=== PATIENT | female | born 1985 | race Hispanic/Latino ===

== ENCOUNTER 2019-11-10 10:47 | Outpatient (CLI) | payer BC, SELFPAY ==
[2019-11-10] VITALS (7 sets, daily range): BP systolic 124–140; BP diastolic 79–95; PULSE 68–93
[2019-11-10 11:48] LABS: Basophils Absolute Auto 0.1 K/mm3 (0.0-0.1); Basophils Percent Auto 0.4 % (0.2-1.2); Eosinophils Absolute Auto 0.1 K/mm3 (0-0.3); Eosinophils Percent Auto 0.9 % (0-4.4); Hematocrit 37.6 % (37.0-47.0); Hemoglobin 12.1 g/dL (12.0-15.0); Immature Granulocyte Absolute 0.13 K/mm3 (0.00-0.031); Immature Granulocyte Percent A 0.9 % (0-0.5); Lymphocytes Absolute Auto 2.61 K/mm3 (0.9-3.2); Lymphocytes Percent Auto 19.1 % (18.3-44.2); Mean Corpuscular HGB Conc 32.2 g/dl (32-36); Mean Corpuscular Hemoglobin 27.4 pg (26-34); Mean Corpuscular Volume 85.1 fl (80-100); Mean Platelet Volume 9.6 fl (7.4-10.4); Monocytes Absolute Auto 0.7 K/mm3 (0.1-0.6); Monocytes Percent Auto 5.3 % (2.6-8.5); Neutrophils Absolute Auto 10.1 K/mm3 (1.3-6.7); Neutrophils Percent Auto 73.4 % (45.5-73.1); Platelet Count Result 531 k/mm3 (150-375); Red Blood Count 4.42 M/mm3 (4.2-5.4); Red Cell Distribution Width 13.2 % (11.5-14.5); White Blood Count 13.7 K/mm3 (4.5-10.0)
[2019-11-10 11:53] LABS: Add Urine Microscopic? YES; Appearance Urine Clear (Clear); Bacteria Urine Trace /hpf; Bilirubin Urine Negative (Negative); Blood Urine Negative (Negative); Color Urine Yellow (Yellow); Glucose Urine UA Negative (Negative); Ketones Urine Negative (Negative); Leukocyte Esterase Ur Trace LEU/UL (Negative); Mucus Urine Rare /lpf; Nitrate Urine Negative (Negative); Protein Urine Negative (Negative); RBC Urine 0-2 /hpf (0-2); Specific Grav Ur 1.011 (1.001-1.035); Squamous Epithelial Cell Urine Few /hpf (Few); Urobilinogen Urine Negative mg/dL (<2.0); WBC Urine 0-3 /hpf
[2019-11-10 11:58] LABS: Creatinine Urine 48.4 mg/dL; Total Protein Urine Random 11 mg/dL
[2019-11-10 12:02] LABS: Alanine Aminotransferase 11 U/L (4-35); Albumin Level 3.7 g/dL (3.5-5.1); Alkaline Phosphatase 189 U/L (38-126); Aspartate Amino Transferase 17 U/L (14-36); Bilirubin,Total 0.2 mg/dL (0.2-1.3); Blood Urea Nitrogen 8 mg/dL (7-17); Calcium 9.2 mg/dL (8.4-10.2); Carbon Dioxide 21 mmol/L (22-30); Chloride 105 mmol/L (98-107); Estimated Glomerular Filt Rate > 60; Glucose 94 mg/dL (65-105); Potassium 4.4 mmol/L (3.4-5.0); Sodium 134 mmol/L (137-145); Uric Acid 5.5 mg/dL (2.5-7.5)
--- NOTE | 2019-11-10 12:46 | PC.NURSE ---
Dr. Guido informed of reactive NST, BP's, and lab results. Order for discharge received. Pt to make appointment to be seen in office next week.
== END 2019-11-10 12:58 | disposition home or self-care (01) ==
LOC: ANHOBOP 10:58 → ANHOBPP 11:00
PROVIDERS: Obstetrics & Gynecology; Visit Provider Obstetrics & Gynecology
DX: O13.9 Gestational [pregnancy-induced] hypertension without significant proteinuria, unspecified trimester (principal); Z3A.00 Weeks of gestation of pregnancy not specified
CPT/HCPCS: 36415; 59025; 80053; 81001; 82570; 84156; 84550; 85025; 99199

== ENCOUNTER 2019-11-16 23:58 | Inpatient (IN) | payer BC, SELFPAY ==
[2019-11-17] VITALS (76 sets, daily range): BP systolic 123–171; BP diastolic 68–118; PULSE 60–113; RESP 16; TEMP 36.3–37.2; O2SAT 95–100; BMI 44.4
[2019-11-17 00:54] LABS: Basophils Absolute Auto 0.1 K/mm3 (0.0-0.1); Basophils Percent Auto 0.4 % (0.2-1.2); Eosinophils Absolute Auto 0.2 K/mm3 (0-0.3); Eosinophils Percent Auto 1.1 % (0-4.4); Hematocrit 34.4 % (37.0-47.0); Hemoglobin 11.1 g/dL (12.0-15.0); Immature Granulocyte Absolute 0.09 K/mm3 (0.00-0.031); Immature Granulocyte Percent A 0.7 % (0-0.5); Lymphocytes Absolute Auto 3.69 K/mm3 (0.9-3.2); Lymphocytes Percent Auto 28.1 % (18.3-44.2); Mean Corpuscular HGB Conc 32.3 g/dl (32-36); Mean Corpuscular Hemoglobin 27.4 pg (26-34); Mean Corpuscular Volume 84.9 fl (80-100); Mean Platelet Volume 9.5 fl (7.4-10.4); Monocytes Absolute Auto 0.8 K/mm3 (0.1-0.6); Monocytes Percent Auto 5.9 % (2.6-8.5); Neutrophils Absolute Auto 8.4 K/mm3 (1.3-6.7); Neutrophils Percent Auto 63.8 % (45.5-73.1); Platelet Count Result 504 k/mm3 (150-375); Red Blood Count 4.05 M/mm3 (4.2-5.4); Red Cell Distribution Width 13.2 % (11.5-14.5); White Blood Count 13.1 K/mm3 (4.5-10.0)
--- NOTE | 2019-11-17 00:55 | LDADM ---
This patient, Sarah Madsen, was admitted to Labor/Delivery/Recovery 105 on 11/16/19 at 23:58. Plans for labor, pain management and were discussed with patient. Patient/family oriented to hospital policies and general routines including ID bracelet, bed and alarms, visiting hours, pain management, procedures, bathroom and other care routines, personal items, smoking policy, room service/diet and guest tray routines, security routines, and visiting hours. Patient/Family are encouraged to report perceived risks to care and to ask questions if they do not understand what they are told or what they should do. See OBIX for further documentation.
[2019-11-17 01:04] LABS: Alanine Aminotransferase 10 U/L (4-35); Albumin Level 3.5 g/dL (3.5-5.1); Alkaline Phosphatase 179 U/L (38-126); Aspartate Amino Transferase 16 U/L (14-36); Bilirubin,Total 0.2 mg/dL (0.2-1.3); Blood Urea Nitrogen 12 mg/dL (7-17); Calcium 9.6 mg/dL (8.4-10.2); Carbon Dioxide 21 mmol/L (22-30); Chloride 107 mmol/L (98-107); Estimated CRCL calculation 182 ml/min; Estimated Glomerular Filt Rate > 60; Glucose 112 mg/dL (65-105); Potassium 3.9 mmol/L (3.4-5.0); Sodium 135 mmol/L (137-145); Uric Acid 4.9 mg/dL (2.5-7.5)
[2019-11-17] MEDS: LACTATED RINGERS 1,000 ML 125 ML IV CONT ×3 (05:34→15:51)
[2019-11-17] MEDS: OXYTOCIN 30 UNITS/NS 500 ML 30 UNITS/500 ML BAG IV CONT (05:35)
[2019-11-17 11:26] LABS: Rapid Plasma Reagin Non-Reactive (NonReactive)
--- NOTE | 2019-11-17 12:41 | WPDANESEPPF ---
Anes - Initial Pre Proc Eval Date/Time: 11/17/19 12:41 Surgeon: Deonte Guido DO Pre Op Diagnosis: Leaking fluid Patient Data Age: 34 Gender: F Height: 5 ft 6 in Weight: 125 kg Last Vital Signs Temp 36.3 C L 11/17/19 04:12 Pulse 93 11/17/19 12:37 BP 159/89 H 11/17/19 12:37 Pulse Ox 96 11/17/19 12:38 Allergies Allergy/AdvReac Type Severity Reaction Status Date / Time ketorolac [From Toradol] Allergy Rash Verified 06/15/19 12:16 Home Medications Medication Instructions Recorded Confirmed Type PNV cmb#95-ferrous fumarate-FA 1 tablet PO DAILY 10/27/19 11/10/19 History [] ferrous sulfate [Iron (ferrous 325 mg PO DAILY 10/27/19 11/10/19 History sulfate)] acetaminophen [Tylenol] 325 mg PO Q4H PRN 11/10/19 11/10/19 History Laboratory Tests 11/17/19 11/17/19 11/17/19 00:41 00:41 00:41 WBC 13.1 K/mm3 H K/mm3 (4.5-10.0) RBC 4.05 M/mm3 L M/mm3 (4.2-5.4) Hgb 11.1 g/dL L g/dL (12.0-15.0) Hct 34.4 % L % (37.0-47.0) MCV 84.9 fl fl (80-100) MCH 27.4 pg pg (26-34) MCHC 32.3 g/dl g/dl (32-36) RDW 13.2 % % (11.5-14.5) Plt Count 504 k/mm3 H k/mm3 (150-375) MPV 9.5 fl fl (7.4-10.4) Immature Gran % (Auto) 0.7 % H % (0-0.5) Neut % (Auto) 63.8 % % (45.5-73.1) Lymph % (Auto) 28.1 % % (18.3-44.2) Dickson % (Auto) 5.9 % % (2.6-8.5) Eos % (Auto) 1.1 % % (0-4.4) Baso % (Auto) 0.4 % % (0.2-1.2) Lymph # (Auto) 3.69 K/mm3 H K/mm3 (0.9-3.2) Dickson # (Auto) 0.8 K/mm3 H K/mm3 (0.1-0.6) Eos # (Auto) 0.2 K/mm3 K/mm3 (0-0.3) Baso # (Auto) 0.1 K/mm3 K/mm3 (0.0-0.1) Abs Immat Gran (auto) 0.09 K/mm3 H K/mm3 (0.00-0.031) Absolute Neuts (auto) 8.4 K/mm3 H K/mm3 (1.3-6.7) Absolute Nucleated RBC 0.0 K/mm3 K/mm3 (0.0-0.012) Nucleated RBC % 0.0 % % (0.0-0.2) Sodium Potassium Chloride Carbon Dioxide BUN Creatinine Estim Creat Clear Calc Estimated GFR Glucose Uric Acid Cancelled Calcium Total Bilirubin AST ALT Alkaline Phosphatase Total Protein Albumin RPR Non-reactive (NonReactive) Blood Type Antibody Screen 11/17/19 11/17/19 00:41 00:41 WBC RBC Hgb Hct MCV MCH MCHC RDW Plt Count MPV Immature Gran % (Auto) Neut % (Auto) Lymph % (Auto) Dickson % (Auto) Eos % (Auto) Baso % (Auto) Lymph # (Auto) Dickson # (Auto) Eos # (Auto) Baso # (Auto) Abs Immat Gran (auto) Absolute Neuts (auto) Absolute Nucleated RBC Nucleated RBC % Sodium 135 mmol/L L mmol/L (137-145) Potassium 3.9 mmol/L mmol/L (3.4-5.0) Chloride 107 mmol/L mmol/L (98-107) Carbon Dioxide 21 mmol/L L mmol/L (22-30) BUN 12 mg/dL mg/dL (7-17) Creatinine 0.50 mg/dL L mg/dL (0.7-1.0) Estim Creat Clear Calc 182 ml/min ml/min Estimated GFR > 60 (59 - ) Glucose 112 mg/dL H mg/dL (65-105) Uric Acid 4.9 mg/dL mg/dL (2.5-7.5) Calcium 9.6 mg/dL mg/dL (8.4-10.2) Total Bilirubin 0.2 mg/dL mg/dL (0.2-1.3) AST 16 U/L U/L (14-36) ALT 10 U/L U/L (4-35) Alkaline Phosphatase 179 U/L H U/L (38-126) Total Protein 7.0 g/dL g/dL (6.3-8.2) Albumin 3.5 g/dL g/dL (3.5-5.1) RPR Blood Type O Positive Antibody Screen Negative Patient hx anesthesia problems: none Family
--- NOTE | 2019-11-17 12:53 | PM.IMHP ---
H&P: HPI History of Present Illness Chief complaint: Leaking fluid Narrative: Sarah Madsen is a 34 year old female at 40 weeks gestation initially presented to L&D with spontaneous rupture of membranes and cervical dilation of 2cm. She is doing well. Labor augmented with pitocin. Just had her epidural placed and is now more comfortable. She had some headaches yesterday but no headaches currently. No blurry vision. Occasional glitters in her vision, but she has experienced this for several weeks and today is not bad. Review of Systems Constitutional: Constitutional: Reports no additional constitutional complaints Cardiovascular: Cardiovascular: Reports no additional cardiovascular complaints Respiratory: Respiratory: Reports no additional respiratory complaints Gastrointestinal: Gastrointestinal: Reports no additional gastrointestinal complaints Genitourinary: Genitourinary: Reports no additional female genitourinary complaints Musculoskeletal: Musculoskeletal: Reports no additional musculoskeletal complaints Neurologic: Reports system reviewed and no additional complaints, except as documented Psychiatric: Psychiatric: Reports no additional psychiatric complaints PMFSH Past Medical History Medical History (Updated 11/17/19 @ 13:01 by Deonte Guido DO) Hx of migraines Surgical History Surgical History (Updated 11/17/19 @ 12:59 by Deonte Guido DO) H/O LEEP Family History Family History Sibling Migraines Father Diabetes mellitus Mother Hypertension Social History Social History Smoking status: Former smoker Alcohol intake: never Substance use: never Gender identity (if verbalized by the patient): Female Spiritual care concerns: No Meds Home Medications and Allergies Home Medications Medication Instructions Recorded Confirmed Type PNV cmb#95-ferrous fumarate-FA 1 tablet PO DAILY 10/27/19 11/10/19 History [] ferrous sulfate [Iron (ferrous 325 mg PO DAILY 10/27/19 11/10/19 History sulfate)] acetaminophen [Tylenol] 325 mg PO Q4H PRN 11/10/19 11/10/19 History Allergies Allergy/AdvReac Type Severity Reaction Status Date / Time ketorolac [From Toradol] Allergy Rash Verified 06/15/19 12:16 Vital Signs Vital Signs - 24 hr 11/17/19 02:03 11/17/19 04:08 11/17/19 04:12 Temperature 36.3 C L Pulse Rate 67 69 Blood Pressure 144/68 H 136/81 Pulse Oximetry 11/17/19 05:33 11/17/19 09:53 11/17/19 10:01 Temperature Pulse Rate 74 88 71 Blood Pressure 129/94 H 158/102 H 166/96 H Pulse Oximetry 11/17/19 10:16 11/17/19 10:31 11/17/19 10:46 Temperature Pulse Rate 82 69 80 Blood Pressure 161/97 H 131/93 H 150/94 H Pulse Oximetry 11/17/19 11:02 11/17/19 11:16 11/17/19 11:31 Temperature Pulse Rate 87 91 111 H Blood Pressure 135/75 167/118 H 148/81 H Pulse Oximetry 11/17/19 11:46 11/17/19 12:01 11/17/19 12:16 Temperature Pulse Rate 113 H 76 60 Blood Pressure 130/81 123/74 145/96 H Pulse Oximetry 11/17/19 12:25 11/17/19 12:27 11/17/19 12:29 Temperature Pulse Rate 86 Blood Pressure 168/96 H Pulse Oximetry 100 100 11/17/19 12:30 11/17/19 12:31 11/17/19 12:32 Temperature Pulse Rate 80 86 Blood Pressure 158/79 H 171/94 H Pulse Oximetry 100 100 11/17/19 12:34 11/17/19 12:35 11/17/19 12:37 Temperature Pulse Rate 79 70 93 Blood Pressure 161/89 H 160/72 H 159/89 H Pulse Oximetry 100 11/17/19 12:38 11/17/19 12:41 11/17/19 12:43 Temperature Pulse Rate 86 Blood Pressure 163/86 H Pulse Oximetry 96 97 11/17/19 12:46 11/17/19 12:48 11/17/19 12:51 Temperature Pulse Rate 85 94 Blood Pressure 157/85 H 155/90 H Pulse Oximetry 96 11/17/19 12:53 Temperature Pulse Rate Blood Pressure Pulse Oximetry 95 Exam Const: General: comfortable and no
[2019-11-17 14:25] LABS: Creatinine Urine 110.1 mg/dL
[2019-11-17] MEDS: LABETALOL HCL INJ 100 MG/20 ML VIAL 20 MG IV PUSH (15:45)
[2019-11-17 16:29] LABS: Total Protein Urine Random 10 mg/dL
--- NOTE | 2019-11-17 16:58 | P.PCNOB_ITS ---
OB - Delivery Note Procedure Delivery date: 11/17/19 events: Induced HTN Intrapartal events: None Induction method: none Delivery augmentation: pitocin Delivery monitor: external FHT Route of delivery: Laceration description: Perineal - 1st Degree Delivery repair: vicryl Specimen: Yes Estimated blood loss (mL): 200 Anesthesia type: Epidural Disposition: floor [facility] Date of : 11/17/19 Time of : 16:32 Weeks of gestation at delivery: 40 gender: Female Weight (pounds): 7 Weight (ounces): 15 presentation: vertex position: Left Occiput Anterior Placenta delivery description: Spontaneous cord vessel description: 3 Vessels, Nuchal Cord and Loose score one minute: 9 score five minutes: 9
--- NOTE | 2019-11-17 17:42 | OP_ITS ---
DATE OF PROCEDURE: 11/17/2019 PROCEDURE: Normal spontaneous vaginal delivery. PREDELIVERY DIAGNOSES: 1. 40-week term gestation. 2. Spontaneous rupture of membranes. 3. Gestational hypertension. POSTDELIVERY DIAGNOSES: 1. 40-week term gestation. 2. Spontaneous rupture of membranes. 3. Gestational hypertension. ANESTHESIA: Epidural. ESTIMATED BLOOD LOSS: 200 mL. FINDINGS: 1. Single live female , born on November 17, 2017 at 1632. Weight 7 pounds 15 ounces, 9 and 9. 2. First-degree perineal laceration repaired with 2-0 Vicryl. SPECIMEN: Placenta, sent to pathology. BRIEF HISTORY: A 34-year-old, G1, P0, at 40 weeks gestation, initially presented with spontaneous rupture of membranes. Labor was augmented with Pitocin. Elevated blood pressures were noted. Preeclampsia labs were drawn. Urine protein/creatinine ratio was 0.1, and all of the labs were within normal limits. DESCRIPTION OF PROCEDURE: Once the patient was noted to be completely dilated, the labor bed was broken down. Legs were placed in stirrups for support with contractions and maternal effort, pushing efforts, the presented in PRATEEK position. The head was delivered. A loose nuchal cord was noted and reduced. Gentle downward traction applied. Anterior shoulder delivered without incident followed by the posterior shoulder and the rest of the body. The was handed off to the waiting mother. Delayed cord clamping was performed. Cord blood gases collected. Gentle traction on the umbilical cord applied and the placenta delivered spontaneously. Fundal massage was applied. Uterine fundus was noted to be firm. Exam was performed identifying lacerations. A first-degree perineal laceration was noted. This was repaired with 2-0 Vicryl. Good hemostasis noted. The patient tolerated the procedure well. All sponge and instrument counts were correct at the end of the procedure. The patient resting in the Labor and Delivery room. D I MT: Faith
[2019-11-17] MEDS: BENZOCAINE 20% AER SPR (*SP) 56 GM CAN 1 SPRAY TOPICAL (19:44)
[2019-11-17] MEDS: WITCH HAZEL 40 PADS 1 PAD TOPICAL (19:44)
[2019-11-18 05:44] LABS: Hematocrit 29.1 % (37.0-47.0); Hemoglobin 9.4 g/dL (12.0-15.0)
[2019-11-18 06:50] VITALS: PULSE 93
[2019-11-18] MEDS: IBUPROFEN 600 MG TABLET PO ×2 (08:39→16:29)
[2019-11-18] MEDS: MULTIVIT/MIN/PREN/FOL AC/IRON TABLET 1 TAB PO (08:39)
[2019-11-18] MEDS: DOCUSATE SODIUM 100 MG CAPSULE PO ×2 (08:40→16:29)
[2019-11-18 08:50] VITALS: BP 131/78; PULSE 86; RESP 18; TEMP 36.6; O2SAT 98
[2019-11-18] MEDS: POLYSACCHARIDE IRON COMPLEX 150 MG CAPSULE PO (09:21)
--- NOTE | 2019-11-18 10:20 | PC.NURSE ---
Consulted with patient, mother reports infant is sleepy and not willing to latch. Reviewed feeding cues, frequencies, duration of feedings, feeding elimination flow sheet, and signs of adequate intake. Demonstrated stimulation techniques to wake infant for feeding. Assisted with to breast. Reviewed positioning/alignment in cross cradle, holding breast in U hold and guided asymmetrical latch on. Discussed rational for each. Several attempts before was able to latch correctly. nursed eagerly, with steady draws and occasional swallowing noted. Reviewed signs of a correct latch, effective nursing and suck swallow ratio. Advised to stimulate to keep awake and nursing effectively for increased intake and assisting with maintaining deep latch. was able to maintain latch without discomfort to mother. Nipple care reviewed. Instructed mother to call out for RN assistance if she is unable to latch infant for feeding or she has discomfort with nursing. Instructed feeding should be initiated three hours from start of last feeding or if feeding cues are noted before. Mother voiced understanding of information shared.
--- NOTE | 2019-11-18 12:46 | PM.OBPNVD ---
OB - PN: Subj Subjective Date/time seen: 11/18/19 12:46 Sarah is a 34yo P1001 s/p @ 40wks, PPD#1 Today, she is doing great. She reports mild vaginal discomfort but tolerable with the pain medications. Her bleeding is decreasing. She is tolerating regular diet w/o N/V. She is voiding w/o issue and passing flatus. She is ambulating w/o symptoms of anemia. She reported a mild REYNOLDS this morning but states it resolved spontaneously. She denies any vision changes, CP, SOB. She is breast feeding. No fever, chills. She would like to be discharged home today. OB - PN: Obj Data Labs CBC & Chem 7: 11/18/19 04:40 11/17/19 00:41 Labs: Laboratory Results - last 24 hr 11/17/19 11/17/19 11/18/19 13:48 13:48 04:40 Hgb 9.4 L Hct 29.1 L U Random Total Protein 10 Urine Creatinine 110.1 110.0 OB - PN A/P Assessment and Plan (1) Gestational hypertension: Code(s): O13.9 - Gestational [-induced] hypertension without significant proteinuria, unspecified trimester Status: Acute (2) Term : Code(s): Z34.90 - Encounter for supervision of normal , unspecified, unspecified trimester Status: Acute Plan day: 1 Plan: routine care and discharge home Comments: - meeting all milestones - will discharge home this PM - Pelvic rest, take medications as prescribed. - F/u in 1 week for BP check; pt to call and schedule appt - ER return precautions regarding: pain, fever, bleeding, HTN. Time Spent With Patient Time: Total time spent is greater than 50% in coordination of care (as documented) at patient's floor/unit and/or counseling patient: Review of Systems Review of Systems: All systems reviewed & are unremarkable except as noted in HPI and below (HPI) Exam Const: General: comfortable, no acute distress, alert and awake Resp: Effort & Inspection: normal respiratory effort and abnormal respiratory pattern Cardio: Rate: regular rate GI: Auscultation: normal bowel sounds Other: mildly distended, soft, fundus firm below umbilicus Psych: Appearance: grossly normal Affect: normal affect Attitude: cooperative
[2019-11-19 09:15] VITALS: BP 148/88; PULSE 88; RESP 18; TEMP 36.8
--- NOTE | 2019-11-19 12:23 | PM.OBDSVD ---
DS: Diagnosis Admitting Diagnosis Admitting Diagnosis: Encounter for supervision of normal , unspecified, unspecified trimester Discharge Diagnosis (1) Gestational hypertension: Code(s): O13.9 - Gestational [-induced] hypertension without significant proteinuria, unspecified trimester Status: Acute (2) (normal spontaneous vaginal delivery): Code(s): O80 - Encounter for full-term uncomplicated delivery Status: Acute (3) Spontaneous rupture of membranes: Status: Acute OB - DS: Summary Hospital Course Hospital Course: Admitted for SROM and latent labor. Progressed to have . Gestational HTN, preeclampsia work up was negative. Progressed as expected post OB Procedures : None OB Procedures Intrapartum: Spontaneous Vag Delivery OB Procedures: : None Peripartum Data Delivery Method: Natural Vaginal Laceration description: Perineal - 1st Degree complications: none Status at Discharge Overall status at discharge: patient is progressing back to baseline Time Spent with Patient Time attestation: Total time spent providing and/or coordinating discharge services: Exam Const: General: comfortable, no acute distress, alert and awake Resp: Effort & Inspection: normal respiratory effort and abnormal respiratory pattern Cardio: Rate: regular rate GI: Auscultation: normal bowel sounds Other: mildly distended, soft, fundus firm below umbilicus Skin: General skin exam: normal color Psych: Appearance: grossly normal Mental Status: mental status grossly normal Affect: normal affect Attitude: cooperative DS: Data Data Completed and Pending Pending studies at discharge: Pending at discharge 11/17/19 16:37 Surgical [PTH] Routine Discharge Plan Discharge Attending physician on discharge: Deonte Guido Discharging Clinician: Deonte Guido Patient Disposition: Home, Self-Care Activity: as tolerated Diet: regular Discharge Instructions: Education: Mom and Baby Guide Given to: Mother Follow-Up: Call your delivering provider's office for an appointment to be seen in: call for appointment Mom and baby should come to the [facility] for the follow-up appointment. Appointment Date/Time: November 19, 2019 at 9:00 am What to expect at your follow-up visit: Blood Pressure Check Physical Assessment Call [phone] if you are unable to keep your appointment time. BREAST CARE: 1. Wear a snug supportive bra. 2. For engorgement discomfort: Breast Feeding: A. Apply warm moist washcloths B. Express milk as needed to relieve engorgement C. Wear loose clothing Bottle Feeding: A. May apply ice packs 3. For sore nipples: A. Identify correct latch-on B. Apply warm moist washcloths before and after nursing C. Air dry nipples after nursing D. May apply Lansinoh cream to nipples EPISIOTOMY/PERINEAL CARE: 1. Until bleeding stops, use your jesús bottle after urinating 2. Change your pad frequently throughout the day 3. You may take sitz baths several times a day (fill your bathtub with warm water and soak for 20 minutes.) Do NOT bathe in the water 4. No tub baths until seen by your physician - You may shower ACTIVITY: 1. Rest as much as possible. 2. Do not exercise or lift anything heavier than your baby (such as laundry or other children.) 3. Avoid stairs or driving as much as possible. 4. Do not put anything into the vagina. No douching, tampons, or sexual activity until seen by physician. NOTIFY PHYSICIAN IF YOU HAVE ANY QUESTIONS OR IF ANY OF THE FOLLOWING SYMPTOMS OCCUR: 1. If your perineum becomes red, swollen, or more painful than what you have experienced in the hospital. 2. If your vaginal bleeding becomes foul smelling. 3. If your vaginal bleeding becomes more heavy than a period or if your bleedin
== END 2019-11-18 19:47 | disposition home or self-care (01) | DRG 807 ==
LOC: ANHLDR 11-17 10:33 → ANHOB2 11-17 21:20
PROVIDERS: Admitting Provider Obstetrics & Gynecology; Visit Provider Obstetrics & Gynecology
DX: O13.4 Gestational [pregnancy-induced] hypertension without significant proteinuria, complicating childbirth (principal); Z37.0 Single live birth; Z3A.40 40 weeks gestation of pregnancy; O70.0 First degree perineal laceration during delivery; O99.214 Obesity complicating childbirth; E66.01 Morbid (severe) obesity due to excess calories; O69.81X0 Labor and delivery complicated by cord around neck, without compression, not applicable or unspecified; O99.72 Diseases of the skin and subcutaneous tissue complicating childbirth; L30.9 Dermatitis, unspecified
CPT/HCPCS: 36415; 80053; 82570; 84156; 84550; 85014; 85018; 85025; 86592; 86850; 86900; 86901; 88307; A9270; J2590; J2795; J3010; J7120

== ENCOUNTER → 2021-08-08 02:33 | Outpatient (CLI) | payer BC, SELFPAY ==
[2021-08-08 21:06] LABS: SARS-CoV-2 RNA PCR Positive
== END ==
PROVIDERS: PCP Family Medicine; Visit Provider Nurse Practitioner Family
DX: U07.1 COVID-19 (principal)
CPT/HCPCS: C9803; U0003; U0005

== ENCOUNTER 2021-08-14 09:19 | Outpatient (CLI) | payer BC, SELFPAY ==
[2021-08-14 09:48] LABS: Basophils Absolute Auto 0.1 K/mm3 (0.0-0.1); Basophils Percent Auto 0.5 % (0.2-1.2); Eosinophils Absolute Auto 0.2 K/mm3 (0-0.3); Eosinophils Percent Auto 1.6 % (0-4.4); Hematocrit 42.1 % (37.0-47.0); Hemoglobin 14.1 g/dL (12.0-15.0); Immature Granulocyte Absolute 0.03 K/mm3 (0.00-0.031); Immature Granulocyte Percent A 0.3 % (0-0.5); Lymphocytes Percent Auto 28.9 % (18.3-44.2); Mean Corpuscular HGB Conc 33.5 g/dl (32-36); Mean Corpuscular Hemoglobin 29.1 pg (26-34); Mean Corpuscular Volume 86.8 fl (80-100); Mean Platelet Volume 8.3 fl (7.4-10.4); Monocytes Absolute Auto 0.5 K/mm3 (0.1-0.6); Monocytes Percent Auto 4.6 % (2.6-8.5); Neutrophils Absolute Auto 6.6 K/mm3 (1.3-6.7); Neutrophils Percent Auto 64.1 % (45.5-73.1); Platelet Count Result 464 k/mm3 (150-375); Red Blood Count 4.85 M/mm3 (4.2-5.4); White Blood Count 10.4 K/mm3 (4.5-10.0)
[2021-08-14 10:41] LABS: Iron 73 ug/dL (37-170)
[2021-08-14 10:50] LABS: Vitamin D 25 Hydroxy 34.6 ng/mL
[2021-08-14 10:51] LABS: Percent Iron Saturation 27 % (20-50)
[2021-08-14 11:06] LABS: Free T4 Free Thyroxine 1.12 ng/mL (0.78-2.19)
[2021-08-17 13:27] LABS: Triiodothyronine T3 Free 2.6 pg/mL (2.3-4.2)
== END 2021-08-14 09:20 | disposition home or self-care (01) ==
PROVIDERS: PCP Family Medicine; Visit Provider Nurse Practitioner Family
DX: E55.9 Vitamin D deficiency, unspecified (principal); E03.9 Hypothyroidism, unspecified
CPT/HCPCS: 36415; 82306; 83540; 83550; 84439; 84443; 84481; 85025

== ENCOUNTER 2021-08-15 14:54 | Outpatient (CLI) | payer BC, SELFPAY ==
--- NOTE | 2021-08-21 11:52 | WPDHOLTEREM ---
Holter/Event Monitor Holter/Event Monitor Date of procedure: 08/15/21 Holter/Event Procedure: 48 Hr Holter Monitor Indications: Palpitations Conclusion: 1. 48 hour holter monitor on 08/15/21. 2. Underlying rhythm is sinus rhythm. HR range 47-138 bpm; average HR 69 bpm. 3. There are 75 premature supraventricular complexes and 2 supraventricular couplets. No supraventricular tachycardia. 4. There are 613 premature ventricular complexes, 200 ventricular bigeminy and 533 ventricular trigeminy. No ventricular tachycardia. 5. No sinoatrial or atrioventricular blocks. No significant pauses greater than 2 seconds. 6. Patient reports symptoms of shortness of breath, anxiousness which demonstrate sinus rhythm, HR range 71-79 bpm with one episode with PVC's.
== END 2021-08-15 14:55 | disposition home or self-care (01) ==
PROVIDERS: PCP Family Medicine; Visit Provider Nurse Practitioner Family
DX: R00.2 Palpitations (principal)
CPT/HCPCS: 93225; 93226

== ENCOUNTER 2021-11-22 11:35 | Outpatient (CLI) | payer BC, SELFPAY ==
[2021-11-22 12:03] LABS: Cholesterol 230 mg/dL (0-200); HDL Direct 55 mg/dL; Triglycerides 206 mg/dL (<150)
[2021-11-22 12:04] LABS: Hemoglobin A1C 5.3 % (<5.7)
[2021-11-22 12:14] LABS: LDL Cholesterol Direct 121 mg/dL
[2021-11-22 12:20] LABS: Beta HCG Quantitative < 2.39 mIU/ML
[2021-11-27 13:24] LABS: FSH 3.6 mIU/mL (***); Progesterone <0.2 ng/mL (***); Prolactin 5.8 ng/mL (***)
[2021-11-27 21:06] LABS: DHEA-Sulfate 38 mcg/dL (23-266)
[2021-11-29 20:56] LABS: Testosterone Free 1.4 pg/mL (0.1-6.4); Testosterone Total 14 ng/dL (2-45)
[2021-11-29 21:57] LABS: Estradiol, Ultrasensitive 65 pg/mL
== END 2021-11-22 11:36 | disposition home or self-care (01) ==
LOC: ANHLAB 11:37
PROVIDERS: PCP Family Medicine; Visit Provider Obstetrics & Gynecology
DX: N92.6 Irregular menstruation, unspecified (principal)
CPT/HCPCS: 36415; 80061; 82627; 82670; 83001; 83036; 83498; 84144; 84146; 84402; 84403; 84443; 84702

== ENCOUNTER → 2021-12-14 11:04 | Outpatient (CLI) | payer BC, SELFPAY ==
--- NOTE | ~2021-12-14 | US_ITS ---
EXAMINATION: US pelvic complete w TV DATE: 12/14/2021 11:53 INDICATION: Irregular menstruation, unspecified. TECHNIQUE: Multiple transabdominal and transvaginal sonographic images of the pelvis were obtained. COMPARISON: None. FINDINGS: TRANSABDOMINAL ULTRASOUND: The uterus measures 7.9 x 3.8 x 4.8 cm. There is physiologic free fluid in the pelvis. TRANSVAGINAL ULTRASOUND: The endometrial complex measures 15 mm in thickness. The right ovary measures 3.6 x 2.9 x 3.5 cm. The left ovary measures 3.8 x 2.2 x 2.1 cm. There is a 3.0 cm cystic mass with peripheral low level echo es in right ovary, consistent with a hemorrhagic cyst. IMPRESSION: 1. No etiology for the patient's symptoms. Reviewed, dictated and finalized at location A.
== END ==
PROVIDERS: PCP Family Medicine; Visit Provider Obstetrics & Gynecology
DX: N92.6 Irregular menstruation, unspecified (principal)
CPT/HCPCS: 76830; 76856

== ENCOUNTER 2022-06-28 09:51 | Outpatient (CLI) | payer BC, SELFPAY ==
[2022-06-28 12:27] LABS: T4 Thyroxine 7.97 ug/dL (5.53-11.0)
== END 2022-06-28 09:52 | disposition home or self-care (01) ==
PROVIDERS: PCP Family Medicine; Visit Provider Nurse Practitioner Family
DX: E03.9 Hypothyroidism, unspecified (principal)
CPT/HCPCS: 36415; 84436; 84443

== ENCOUNTER 2022-09-28 10:07 | Outpatient (CLI) | payer BC, SELFPAY ==
[2022-09-28 10:21] LABS: Hematocrit 40.1 % (37.0-47.0); Mean Corpuscular HGB Conc 32.4 g/dl (32-36); Mean Corpuscular Hemoglobin 27.5 pg (26-34); Mean Corpuscular Volume 84.8 fl (80-100); Mean Platelet Volume 8.3 fl (7.4-10.4); Platelet Count Result 503 k/mm3 (150-375); Red Blood Count 4.73 M/mm3 (4.2-5.4); Red Cell Distribution Width 13.3 % (11.5-14.5)
[2022-09-28 10:37] LABS: Alanine Aminotransferase 21 U/L (6-35); Albumin Level 4.5 g/dL (3.5-5.1); Alkaline Phosphatase 111 U/L (38-126); Anion Gap 7 mmol/L (8-16); Aspartate Amino Transferase 21 U/L (14-36); Bilirubin,Total 0.4 mg/dL (0.2-1.3); Blood Urea Nitrogen 11 mg/dL (7-17); Carbon Dioxide 28 mmol/L (22-30); Chloride 104 mmol/L (98-107); Cholesterol 198 mg/dL (0-200); Estimated Glomerular Filt Rate > 60; Glucose 105 mg/dL (65-110); HDL Direct 43 mg/dL; Potassium 4.2 mmol/L (3.4-5.0); Sodium 139 mmol/L (137-145); Triglycerides 130 mg/dL (<150)
[2022-09-28 10:48] LABS: LDL Cholesterol Direct 109 mg/dL
[2022-09-28 10:53] LABS: T4 Thyroxine 9.02 ug/dL (5.53-11.0)
== END 2022-09-28 10:08 | disposition home or self-care (01) ==
PROVIDERS: PCP Family Medicine; Visit Provider Nurse Practitioner Family
DX: K76.0 Fatty (change of) liver, not elsewhere classified (principal); D64.9 Anemia, unspecified; E03.9 Hypothyroidism, unspecified
CPT/HCPCS: 36415; 80053; 80061; 84436; 84443; 85027

== ENCOUNTER 2023-11-06 10:39 | Outpatient (CLI) | payer BC, SELFPAY ==
[2023-11-06 11:31] LABS: Hematocrit 40.2 % (37.0-47.0); Hemoglobin 12.8 g/dL (12.0-15.0); Mean Corpuscular HGB Conc 31.8 g/dl (32-36); Mean Corpuscular Hemoglobin 27.6 pg (26-34); Mean Corpuscular Volume 86.8 fl (80-100); Mean Platelet Volume 8.5 fl (7.4-10.4); Platelet Count Result 530 k/mm3 (150-375); Red Blood Count 4.63 M/mm3 (4.2-5.4); Red Cell Distribution Width 13.4 % (11.5-14.5); White Blood Count 11.1 K/mm3 (4.5-10.0)
[2023-11-06 11:49] LABS: Alanine Aminotransferase 17 U/L (6-35); Albumin Level 4.3 g/dL (3.5-5.1); Alkaline Phosphatase 96 U/L (38-126); Anion Gap 9 mmol/L (4-12); Aspartate Amino Transferase 19 U/L (14-36); Bilirubin,Total 0.5 mg/dL (0.2-1.3); Blood Urea Nitrogen 12 mg/dL (7-17); Calcium 9.5 mg/dL (8.4-10.2); Carbon Dioxide 23 mmol/L (22-30); Chloride 106 mmol/L (98-107); Cholesterol 202 mg/dL (0-200); Estimated Glomerular Filt Rate > 60; Glucose 109 mg/dL (65-110); HDL Direct 40 mg/dL; Potassium 4.1 mmol/L (3.4-5.0); Sodium 138 mmol/L (137-145); Triglycerides 118 mg/dL (<150)
[2023-11-06 12:00] LABS: LDL Cholesterol Direct 127 mg/dL
[2023-11-06 12:14] LABS: Iron 64 ug/dL (37-170); Percent Iron Saturation 19 % (20-50); Vitamin D 25 Hydroxy 39.7 ng/mL
[2023-11-06 13:31] LABS: Hemoglobin A1C 5.6 % (<5.7)
== END 2023-11-06 10:40 | disposition home or self-care (01) ==
LOC: ANHLAB 10:41
PROVIDERS: Physician Assistant; PCP Family Medicine; Visit Provider Nurse Practitioner Family
DX: D64.9 Anemia, unspecified (principal); R61 Generalized hyperhidrosis; E03.9 Hypothyroidism, unspecified; R73.9 Hyperglycemia, unspecified; E66.01 Morbid (severe) obesity due to excess calories; Z68.41 Body mass index [BMI] 40.0-44.9, adult
CPT/HCPCS: 36415; 80053; 80061; 82306; 83036; 83540; 83550; 84436; 84443; 85027

== ENCOUNTER 2023-12-04 14:12 | Outpatient (CLI) | payer BC, SELFPAY ==
--- NOTE | ~2023-12-04 | US_ITS ---
EXAMINATION: US pelvic complete w TV DATE: 12/04/2023 14:48 INDICATION: Amenorrhea Comparison:Ultrasound dated 10/22/2023 TECHNIQUE: Multiple transabdominal and endovaginal sonographic images of the pelvis performed. FINDINGS: The uterus measures 8.8 x 3.7 x 4.3 cm. The endometrial complex measures 9 mm. The right ovary measures 6.2 x 4.1 x 6.5 cm and the left ovary measures 5 x 3.2 x 3.7 cm. There are small follicles in each ovary. There are multiple bilateral ovarian cysts, largest complicated septat ed cyst in the right ovary measures 5.7 cm. Normal doppler signal in both ovaries. There is no free fluid in the pelvis. There are no abnormal masses seen on either side. IMPRESSION: 1. Multiple bilateral ovarian cysts, largest in the right ovary being septated measuring 5.7 cm. Reviewed, dictated and finalized at location B.
== END 2023-12-04 14:13 ==
PROVIDERS: PCP Obstetrics & Gynecology; Visit Provider Obstetrics & Gynecology
DX: N91.2 Amenorrhea, unspecified (principal); N83.201 Unspecified ovarian cyst, right side; N83.202 Unspecified ovarian cyst, left side
CPT/HCPCS: 76830; 76856

== ENCOUNTER 2024-01-09 09:41 | Outpatient (CLI) | payer BC, SELFPAY ==
--- NOTE | ~2024-01-09 | US_ITS ---
EXAMINATION: US transvaginal DATE: 01/09/2024 10:05 INDICATION: Follow-up ovarian cyst Comparison:Ultrasound dated 12/04/2023 TECHNIQUE: Multiple endovaginal sonographic images of the pelvis performed. FINDINGS: The uterus measures 8.7 x 4.1 x 4.7 cm. The endometrial complex measures 10 mm. The right ovary measures 3.7 x 2.7 x 3.1 cm and the left ovary measures 4 x 2.8 x 3 cm. Interval reso lution of right ovarian cyst. There is a 2.3 cm left ovarian cyst. There are small follicles in each ovary. Normal doppler signal in both ovaries. There is no free fluid in the pelvis. There are no abnormal masses seen on either side. IMPRESSION: 1. Simple left ovarian cyst measuring 2.3 cm. Reviewed, dictated and finalized at location B.
== END 2024-01-09 09:42 ==
PROVIDERS: PCP Obstetrics & Gynecology; Visit Provider Obstetrics & Gynecology
DX: N83.292 Other ovarian cyst, left side (principal)
CPT/HCPCS: 76830

== ENCOUNTER 2025-02-04 09:19 | Outpatient (CLI) | payer BC, SELFPAY ==
--- NOTE | ~2025-02-04 | XR_ITS ---
EXAM/PROCEDURE: XR chest 2V - 02/04/2025 9:25 CDT HISTORY: 39 years old Female with R06.02 - Shortness of breath TECHNIQUE: Two view(s) of the chest. COMPARISON: None available. FINDINGS: LUNGS/ PLEURA: Airspace opacity in the left lung base concerning for pneumonia. No pleural effusions or pneumothorax. HEART/ MEDIASTINUM: Heart appears normal in size. BONES: No acute osseous abnormality. OTHER: Visualized upper abdomen is unremarkable. IMPRESSION: Airspace opacity in the left lung base, concerning for pneumonia. Clinical correlation is recommended . Short term follow-up chest radiograph is recommended after appropriate clinical therapy. Reviewed, dictated and finalized at location A. IMPRESSION: Airspace opacity in the left lung base, concerning for pneumonia. Clinical yusuf elation is recommended. Short term follow-up chest radiograph is recommended af ter appropriate clinical therapy.
== END 2025-02-04 09:20 | disposition home or self-care (01) ==
PROVIDERS: PCP Family Medicine
DX: R09.89 Other specified symptoms and signs involving the circulatory and respiratory systems (principal)
CPT/HCPCS: 71046